=== PATIENT | female | born 1945 | race Caucasian/White ===

== ENCOUNTER → 2018-02-26 | Outpatient (CLI) | payer MEDICARE, OTHER | LOC: M.RAD 15:08 | DX: R19.7 Diarrhea, unspecified (principal); R10.30 Lower abdominal pain, unspecified; I70.0 Atherosclerosis of aorta; M47.896 Other spondylosis, lumbar region; Z98.890 Other specified postprocedural states ==

== ENCOUNTER → 2019-10-13 | Outpatient (CLI) | payer MEDICARE, OTHER | LOC: M.CT 15:57 | PROVIDERS: ATTEND Orthopaedic Surgery | DX: M17.12 Unilateral primary osteoarthritis, left knee (principal); M21.062 Valgus deformity, not elsewhere classified, left knee; M85.88 Other specified disorders of bone density and structure, other site; M25.462 Effusion, left knee; M71.22 Synovial cyst of popliteal space [Baker], left knee ==

== ENCOUNTER → 2019-10-26 | Outpatient (CLI) | payer MEDICARE, OTHER ==
--- NOTE | 2019-10-18 11:44 | NUR ---
SPOKE WITH PT.ON PHONE. SHE IS TO HAVE TOATAL JOINT REPLACEMENT SURGERY ON 11/01 WITH . SHE LIVES ALONE AND WILL HAVE NO ONE TO HELP HER AT HOME POST OP. SHE WAS INQUIRING IF SHE WOULD BE ABLE TO GO TO INPT.REHAB UNIT AFTER HER HOSPITAL STAY BECAUSE 'HER DID' SEVERAL YEARS AGO BEFORE HE . EXPLAINED THAT INSURANCE CO.S HAVE CHANGED, ELECTIVE SURGERIES ARE GENERALLY NOT ACCEPTED ON REHAB, ETC. SHE DOES NOT WANT TO GO TO SNF. SHE SAID SHE WOULD JUST GO HOME BY HERSELF IF SHE CAN'T GO TO REHAB. TOLD HER IT IS TOO EARLY TO EVEN START REHAB PROCESS. SHE HAS TO HAVE THERAPY FIRST, MUST WRITE REHAB ORDER,ETC. TOLD HER I WOULD TALK TO HER EITHER THE DAY OF SURGERY OR THE DAY AFTER, DEPENDING ON WHAT TIME SHE GETS BACK FROM SURGERY.
[~2019-10-26] VITALS: Ht 160 cm; Wt 90.7 kg
[~2019-10-26] MED LIST: B12 ACTIVE1000 MCG PO; CALCIUM 600+D1 EACH PO; DESYREL150 MG PO; HYDROCHLOROTHIA25 M2 PO; LISINOPRIL20 MG PO; MAGNESIUM500 MG PO; MELOXICAM15 MG PO; METFORMIN HCL500 M3 PO; NEURONTIN 300M300 M2 PO; NEXIUM20 MG PO; OMEGA 3 1,0001 EACH PO; SIMVASTATIN40 MG PO; TYLENOL PM EX-1 EACH PO; TYLENOL325 M1 PO
[2019-10-26 09:13] LABS: URINE BILIRUBIN NEGATIVE (Negative); URINE BLOOD NEGATIVE (Negative); URINE CLARITY CLEAR; URINE COLOR YELLOW; URINE GLUCOSE-RANDOM NEGATIVE (Negative); URINE KETONES NEGATIVE (Negative); URINE LEUKOCYTES-REFLEX 1+ (Negative); URINE NITRITE-REFLEX NEGATIVE (Negative); URINE PROTEIN NEGATIVE (Negative); URINE UROBILINOGEN 0.2 E.U./dl (0.2-1.0)
[2019-10-26 09:15] LABS: ABSOLUTE BASOPHILS 0.1 thou/uL (0.0-0.2); ABSOLUTE EOSINOPHILS 0.3 thou/uL (0.0-0.7); ABSOLUTE LYMPHOCYTES 1.9 thou/uL (0.8-5.3); ABSOLUTE MONOCYTES 0.5 thou/uL (0.0-1.2); ABSOLUTE NEUTROPHILS 2.9 thou/uL (1.6-8.1); BASOPHILS 1.1 %; EOSINOPHILS 5.4 %; HEMOGLOBIN 12.8 gm/dL (12.0-15.0); LYMPHOCYTES 33.8 %; MCH 31.5 pg (26.0-34.0); MCHC 33.7 g/dL (28.0-37.0); MCV 93.5 fL (80.0-100.0); MONOCYTES 8.3 %; MPV 7.5 fl. (7.2-11.1); NUCLEATED RBCS 0 /100WBC; PLATELET COUNT* 221 thou/uL (150-400); POLYS 51.4 %; RBC 4.06 mil/uL (4.20-5.00); RDW-CV 14.2 % (10.5-14.5); WBC 5.7 thou/uL (4.0-11.0)
[2019-10-26 09:31] LABS: ALBUMIN 3.8 g/dL (3.4-5.0); CALCIUM 9.5 mg/dL (8.5-10.1); CREATININE 1.1 mg/dL (0.6-1.3); POTASSIUM 4.6 mmol/L (3.5-5.1); TOTAL BILIRUBIN 0.5 mg/dL (<0.1-1.0); TOTAL PROTEIN 6.8 g/dL (6.4-8.2)
[2019-10-26 09:39] LABS: BACTERIA-REFLEX 1-9 Few /HPF (None Seen); CASTS None Seen /LPF (None Seen); CRYSTALS None Seen /LPF (None Seen); MUCUS None Seen strn/LPF (None Seen); SQUAMOUS 4-10 Moderate /LPF (0-3); URINE RBC 0-2 Rare /HPF (0-2); URINE WBC-REFLEX 0-5 Rare /HPF (0-5)
--- NOTE | 2019-10-26 16:05 | EKG ---
[place] [address] ELECTROCARDIOGRAM REPORT Name: MYA BOOKER Room: [facility]#: [id number] Admission: 10/26/19 Attend Phys: Chema Ojeda DO Discharge: Date of : 45 Date of Service: 10/26/19 1055 Report #: [id number] THIS REPORT FOR: //name// [facility] Test Date: 2019-10-26 Test Time: 10:55:57 Pat Name: MYA BOOKER Department: Room: Gender: Electrician Ship: : 1945 Requested By: Chema Ojeda Order Number: [id number] Reading MD: Obi Calderon Measurements Intervals [place] Rate: 60 P: 8 HI: 228 QRS: -14 QRSD: 94 T: 52 QT: 433 QTc: 433 Interpretive Statements Sinus rhythm Prolonged HI interval Low voltage, precordial leads No previous ECG available for comparison Electronically Signed On 10-26-2019 16:04:58 CDT by Obi Calderon [email or web address] <ELECTRONICALLY SIGNED> By: Obi Calderon MD, [facility] 10/26/19 1604 1055 1055 Obi Calderon MD, FACC /EPI
[2019-10-27 02:06] LABS: GLYCOHEMOGLOBIN (HGB A1C) 7.4 % (4.8-5.6)
== END ==
LOC: M.LAB 11:33 → EDSTATUS 11-02 11:30 → M.PRE 11-02 13:15
PROVIDERS: ATTEND Orthopaedic Surgery
DX: Z01.818 Encounter for other preprocedural examination (principal); M17.12 Unilateral primary osteoarthritis, left knee; M21.062 Valgus deformity, not elsewhere classified, left knee; Z11.59 Encounter for screening for other viral diseases

== ENCOUNTER 2019-11-02 12:04 | Inpatient (IN) | payer MEDICARE, OTHER ==
[~2019-11-02] VITALS: Ht 160 cm; Wt 90.7 kg
[2019-11-09 11:36] VITALS: BP 145/95
[2019-11-09 17:41] VITALS: BP 141/79
[2019-11-09 20:00] VITALS: BP 150/69
[2019-11-10] VITALS (7 sets, daily range): BP systolic 110–154; BP diastolic 55–84
[2019-11-10 03:35] LABS: HEMATOCRIT 26.8 % (37.0-47.0); HEMOGLOBIN 9.1 gm/dL (12.0-15.0); MCH 31.8 pg (26.0-34.0); MCHC 33.9 g/dL (28.0-37.0); MCV 93.6 fL (80.0-100.0); MPV 7.9 fl. (7.2-11.1); NUCLEATED RBCS 0 /100WBC; PLATELET COUNT* 192 thou/uL (150-400); RBC 2.86 mil/uL (4.20-5.00); RDW-CV 13.5 % (10.5-14.5); WBC 9.8 thou/uL (4.0-11.0)
[2019-11-10 03:54] LABS: CALCIUM 8.5 mg/dL (8.5-10.1); CREATININE 1.1 mg/dL (0.6-1.3); POTASSIUM 4.2 mmol/L (3.5-5.1)
[2019-11-10 05:55] LABS: ABSOLUTE BASOPHILS 0.1 thou/uL (0.0-0.2); ABSOLUTE LYMPHOCYTES 0.6 thou/uL (0.8-5.3); ABSOLUTE MONOCYTES 0.4 thou/uL (0.0-1.2); ABSOLUTE NEUTROPHILS 8.7 thou/uL (1.6-8.1); ANISOCYTOSIS 1+; PLATELET ESTIMATE ADEQUATE; POIKILOCYTOSIS 1+
--- NOTE | 2019-11-10 07:01 | OP ---
[address] [address] OPERATIVE REPORT Name: MYA BOOKER Room: [address] M.RLakshmi#: [id number] Admission: 11/09/19 Attend Phys: Suly Cabezas Discharge: Date of : 45 Report #: [id number] THIS REPORT FOR: //name// cc: Susan Pope MD, Katrina MD ~ THIS REPORT FOR: //name// CC: Chema Pope DATE OF SERVICE: 11/09/2019 PREOPERATIVE DIAGNOSIS: Left knee severe valgus deformity, osteoarthritis with osteoporosis. POSTOPERATIVE DIAGNOSIS: Left knee severe valgus deformity, osteoarthritis with osteoporosis PROCEDURE PERFORMED: MicroPort evolution CCK revision type knee arthroplasty for both the osteoarthritis, the valgus deformity and the osteoporosis. This is a cemented 3 component. SURGEON: Chema Ojeda DO FUR TRAPPER: Simba Issa DO ANESTHESIA: General anesthetic. She did receive Ancef 2 grams IV piggyback preoperatively. ESTIMATED BLOOD LOSS: 200 mL. COMPLICATIONS: None. DRAINS: None. GROSS FINDINGS AND INDICATIONS OF SURGERY: The patient has failed all conservative care measures for severe osteoarthritis, osteoporosis, valgus deformity of the left knee. The patient's intraoperative findings correlated with significant ____ lateral compartment of the tibia as well as a significant bone loss laterally on the femur. The patient had severe osteoporosis on clinical examination when the arthritic bone was removed and bone beneath was very osteoporotic that is why stems were selected. Post placement of the total knee arthroplasty, she had excellent range of motion, stable. Patella tracked well and excellent range of motion, [place] [address] OPERATIVE REPORT Name: MYA BOOKER Room: [address] [place] Moy#: [id number] Admission: 11/09/19 Attend Phys: Suly Cabezas Discharge: Date of : 45 Report #: [id number] DESCRIPTION OF PROCEDURE: The patient was taken to the operating room and placed on the table, given the benefit of general anesthetic. Previously had been seen by Anesthesia for an adductor block. She after the general anesthetic had a well-padded tourniquet placed on the left leg. She underwent a Hibiclens scrub, chlorhexidine prep and sterile draping for left knee surgery. Timeout was called and verified by everyone in the room. After time-out was called and verified, midline incision was made without the tourniquet. I only used the tourniquet for cementing reasons. I did go ahead and make a midline incision followed with a medial parapatellar capsular incision. Hemostasis was maintained throughout surgery. The anesthesia did control some ____. Her blood pressure would go up and go down, but they did control it. In any event, I went back to the femur at this time, did the distal femoral drill hole for the distal femoral cutting block was secured in place and distal femur was cut in routine fashion followed with sizing of the femur to #4 appropriately. The 4-in-1 block was applied. All cuts were now made. I went ahead and made the box chamfer cut at 5 degree angle and I did a trial of that femoral component with a small stem on that femoral component as well. The evolution stem was secured temporarily and placed trial component and we had an excellent fit. Once the femur was finished, I went down to the tibia, used initially an external guide to secure the bone cutting block in place. We took off using the cutting block and I went down to the posterior corner laterally to get the depth of the cut with easily oscillating saw. I now went ahead and sized to a #5, did secure the baseplate into position and once this was accomplished, the femur was then placed and I just did a simple trial reduction to see how that would go and it looks like it fit very well and patella tracked well. The valgus component had straightened out after all these cuts. I did go ahead and initially reamed down the tibia to accept a 75 mm head on a stem and did a trial reduction and it again fit well, the whole component tracked very well with 0-130 degrees of motion. The patella was cut freehand technique. Once this was accomplished, it sized to a 32 appropriately. At this point in time, the leg was Esmarch, tourniquet inflated. All trial components were now removed. I marked the tibial alignment with the cautery on the tibial bone. I did a one-stage cementing technique. Next, after pulsatile lavage, irrigated the knee. the add on tibial component was secured and placed on the tibial baseplate and cement was applied to the tibia into the prosthesis itself tamped into position, removing excess cement. Likewise, the femoral stem was placed on that femoral component in routine fashion and cemented this component into position, removing excess cement compressing with a 14 poly trial. The patella was cemented and all excess cement was removed. Once time had allowed to harden this area, ____ knee and once the tourniquet was released, it was very stable with hemostasis. I went ahead, now at this point in time, elected to take the 14 mm polyethylene, removed the trial, put the real polyethylene in place using the tibia tray with a screw that locked pin to position with an audible click. The leg was placed through motion again, excellent range of motion and good stability. The tourniquet was released. Hemostasis again was easily maintained. I closed the capsule with #1 Vicryl of ewenif-ey-iblur fashion, subcutaneous tissue with 2-0 Monocryl [place] [address] OPERATIVE REPORT Name: MYA BOOKER Room: [address] [place]#: [id number] Admission: 11/09/19 Attend Phys: Suyl Cabezas Discharge: Date of : 45 Report #: [id number] skin jyoti. Mepilex dressing was applied. The patient was transferred off the table and taken to recovery in stable condition. I attest I was present for all critical aspects of surgery. Needle, instrument, and sponge counts correct. <ELECTRONICALLY SIGNED> By: Chema Ojeda DO 11/10/19 0701 1513 [id number] Ojeda DO /nt
[2019-11-10] MEDS ORDERED: FLEXERIL PO (09:44)
[2019-11-10] MEDS ORDERED: ELIQUIS5 MG PO (09:44)
[2019-11-11] VITALS (7 sets, daily range): BP systolic 113–142; BP diastolic 70–85
[2019-11-11 05:28] LABS: HEMATOCRIT 24.4 % (37.0-47.0); HEMOGLOBIN 8.4 gm/dL (12.0-15.0)
[2019-11-11] MEDS ORDERED: LORCET 5-325 M1 EACH PO (09:30)
[2019-11-11] MEDS ORDERED: ROXICODONE5 M2 PO (09:32)
== END 2019-11-11 10:45 | disposition home health service (06) | DRG 468 ==
LOC: M.PRE 12:04 → M.TBA-ER 11-09 11:14 → M.ORTHSURG 11-09 11:14 → M.PRE 11-09 11:17 → M.ORTHSURG 11-09 16:27 → M.PRE 11-12 15:02
PROVIDERS: Orthopaedic Surgery; ADMIT Internal Medicine; ATTEND Internal Medicine
PROC: 0SPU0JZ Removal of Synthetic Substitute from Left Knee Joint, Femoral Surface, Open Approach (ICD-10-PCS; principal; 2019-11-09)
PROC: 0SRU0J9 Replacement of Left Knee Joint, Femoral Surface with Synthetic Substitute, Cemented, Open Approach (ICD-10-PCS; principal; 2019-11-09)
DX: M17.12 Unilateral primary osteoarthritis, left knee (principal); I10 Essential (primary) hypertension; E78.5 Hyperlipidemia, unspecified; K21.9 Gastro-esophageal reflux disease without esophagitis; G89.29 Other chronic pain; E11.36 Type 2 diabetes mellitus with diabetic cataract; M81.0 Age-related osteoporosis without current pathological fracture; Z90.49 Acquired absence of other specified parts of digestive tract; Z90.710 Acquired absence of both cervix and uterus; Z85.3 Personal history of malignant neoplasm of breast; Z90.13 Acquired absence of bilateral breasts and nipples; Z88.2 Allergy status to sulfonamides; Z88.1 Allergy status to other antibiotic agents; Z79.84 Long term (current) use of oral hypoglycemic drugs; Z79.899 Other long term (current) drug therapy

== ENCOUNTER → 2019-12-29 | Outpatient (CLI) | payer MEDICARE, OTHER ==
[~2019-12-29] MED LIST changes: +ELIQUIS5 MG PO; +FLEXERIL PO; +LORCET 5-325 M1 EACH PO; +ROXICODONE5 M2 PO
== END ==
LOC: M.RAD 11:22
PROVIDERS: ATTEND Orthopaedic Surgery
DX: Z47.1 Aftercare following joint replacement surgery (principal); Z96.652 Presence of left artificial knee joint

== ENCOUNTER → 2020-05-03 | Outpatient (CLI) | payer MEDICARE, OTHER | LOC: M.MRI 16:28 | PROVIDERS: ATTEND Orthopaedic Surgery | DX: M25.462 Effusion, left knee (principal); Z96.652 Presence of left artificial knee joint ==

== ENCOUNTER → 2020-05-11 | Outpatient (CLI) | payer MEDICARE, OTHER ==
[2020-05-11 12:38] LABS: ABSOLUTE EOSINOPHILS 0.2 thou/uL (0.0-0.7); ABSOLUTE LYMPHOCYTES 1.3 thou/uL (0.8-5.3); ABSOLUTE MONOCYTES 0.3 thou/uL (0.0-1.2); ABSOLUTE NEUTROPHILS 3.4 thou/uL (1.6-8.1); BASOPHILS 0.7 %; EOSINOPHILS 3.2 %; HEMATOCRIT 33.3 % (37.0-47.0); HEMOGLOBIN 10.6 gm/dL (12.0-15.0); LYMPHOCYTES 24.3 %; MCH 25.4 pg (26.0-34.0); MCHC 31.9 g/dL (28.0-37.0); MCV 79.5 fL (80.0-100.0); MONOCYTES 6.3 %; MPV 7.4 fl. (7.2-11.1); NUCLEATED RBCS 0 /100WBC; PLATELET COUNT* 272 thou/uL (150-400); POLYS 65.5 %; RBC 4.19 mil/uL (4.20-5.00); RDW-CV 17.1 % (10.5-14.5); WBC 5.2 thou/uL (4.0-11.0)
[2020-05-11 13:44] LABS: ESR (SEDRATE) 2 mm/hr (0-30)
== END ==
LOC: M.LAB 12:09
PROVIDERS: ATTEND Orthopaedic Surgery
DX: M17.11 Unilateral primary osteoarthritis, right knee (principal)

== ENCOUNTER → 2020-05-31 | Outpatient (CLI) | payer MEDICARE, OTHER ==
[2020-05-31 15:23] LABS: BF RBC 1375732 /mm3; TOTAL CELL COUNT 3593 /mm3
[2020-05-31 15:28] LABS: CLARITY CLOUDY
[2020-05-31 15:35] LABS: TOTAL VOLUME 15 ml
[2020-05-31 15:59] LABS: BF EOSINOPHILS 2 %; BF LYMPHOCYTES 14 %; BF MONOCYTES 2 %; BF POLYS 82 %
[2020-06-02 15:08] LABS: BODY FLUID PROTEIN 4.1 g/dL (())
== END ==
LOC: M.LAB 13:57
PROVIDERS: ATTEND Orthopaedic Surgery
DX: Z96.652 Presence of left artificial knee joint (principal)